=== PATIENT | male | born 1970 | race Caucasian/White ===

== ENCOUNTER 2020-12-28 05:16 | Emergency (ER) | payer BC, OTHER ==
[2020-12-28 05:32] VITALS: BP 130/73; PULSE 64
--- NOTE | 2020-12-28 06:08 | EDM.PDOC ---
ED HPI GENERAL MEDICAL PROBLEM - General Chief Complaint: Respiratory Problem Stated Complaint: COVID+ISSUES Time Seen by Provider: 12/28/20 05:27 Source of Information: Reports: Patient History Limitations: Reports: No Limitations - History of Present Illness INITIAL COMMENTS - FREE TEXT/NARRATIVE: Mr. Castillo is a pleasant 50-year-old gentleman who states that he developed a he adache this past , 12/18/2020, which became worse on Tuesday, now with a fever of 101.3 degrees, followed by back pain on 12/20/2020, followed by a nonproductive cough on 12/21/2020. He states that he tested positive for the SARS-CoV-2 virus on Tuesday, at a drive-through Covid testing site, and was notified of his positive results that same day. Since then, he developed vomiting after he coughs last night, and dyspnea this morning. No constipation, diarrhea, or urinary symptoms. The patient states that he has been taking Delsym cough syrup, DayQuil, and NyQuil, none of which have seemed to help his symptoms. Here in the ED this morning, the patient is found to be hemodynamically stable, afebrile, saturating 97 to 100% on room air. He coughs on occasion, but it a ppears to be relatively comfortable, in no acute distress. Prior to last , the patient denies having a recent fever, chills, sore throat, ear pain, nasal or sinus congestion, cough, dyspnea, chest pain, palpitations, nausea, vomiting, constipation, diarrhea, abdominal pain, urinary symptoms, recent weight gain or weight loss, recent bloody bowel movements or black bowel movements, recent joint aches, headaches, or rashes. The patient does not have a PCP. He did not receive a COVID vaccination, and states that he does not intend to. Right Thoracic Pain Score (Numeric/FACES): 5 - Related Data Allergies Allergy/AdvReac Type Severity Reaction Status Date / Time No Known Allergies Allergy Verified 12/28/20 05:33 Home Meds: Home Meds . [No Known Home Meds] 12/28/20 [History] Past Medical History Respiratory History: Reports: Pneumothorax (right, traumatic, 2012) - Infectious Disease History Infectious Disease History: Reports: Novel Coronavirus (dx'd 12/22/2020) - Past Surgical History HEENT Surgical History: Reports: Eye Surgery, Oral Surgery (dental extractions) Respiratory Surgical History: Reports: Other (See Below) ([facility] chest tube 2011) Social & Family History - Tobacco Use Tobacco Use Status *Q: Never Tobacco User - Alcohol Use Alcohol Use History: Yes Alcohol Use Frequency: Rarely - Recreational Drug Use Recreational Drug Use: No - Living Situation & Occupation Living situation: Reports: , with Spouse, with Family (2 kids) Occupation: Employed (district service manager) ED ROS GENERAL - Review of Systems Review Of Systems: Comprehensive ROS is negative, except as noted in HPI. ED EXAM, GENERAL - Physical Exam Exam: See Below Exam Limited By: No Limitations General Appearance: Alert, WD/WN, No Apparent Distress (coughs intermittently) Eye Exam: Bilateral Eye: EOMI, Normal Inspection Ears: Normal External Exam, Hearing Grossly Normal Nose: Normal Inspection Throat/Mouth: Normal Inspection, Normal Lips, Normal Voice, No Airway Compromise Head: Atraumatic, Normocephalic Neck: Normal Inspection, Full Range of Motion Respiratory/Chest: No Respiratory Distress, Lungs Clear, Normal Breath Sounds, No Accessory Muscle Use. No: Decreased Breath Sounds, Crackles, Rhonchi, Wheezing, Stridor, Prolonged Expiration Cardiovascular: Normal Peripheral Pulses, Regular Rate, Rhythm, No Edema, No Gallop, No JVD, No Murmur, No Rub Peripheral Pulses: 3+: Radial (L), Radial (R) GI/Abdominal: Normal Bowel Sounds, Soft, Non-Tender, No Organomegaly, No Di stention, No Abnormal Bruit, No Mass Back Exam: Normal Inspection, Full Range of Motion, NT Extremities: Normal Inspection, Normal Range of Motion, No Pedal Edema, Normal Capillary Refill Neurological: Alert, Oriented, Normal Cognition, No Motor/Sensory Deficits Psychiatric: Normal Affect Skin Exam: Warm, Dry, Intact, Normal Color, No Rash Course - Vital Signs Last Recorded V/S: Last Vital Signs Temp 37.1 C 12/28/20 05:30 Pulse 64 12/28/20 05:30 Resp 18 12/28/20 05:30 BP 130/73 12/28/20 05:30 Pulse Ox 97 12/28/20 05:30 - Re-Assessments/Exams Free Text/Narrative Re-Assessment/Exam: 12/28/20 06:02 Based on the patient's BMI, he is a candidate for an infusion of the monoclonal antibody Regen-Cov. We discussed that at length, including that it is an emergency use authorization medication, intended to decrease the likelihood of patients diagnosed with COVID-19 from developing severe symptoms or , and that it does not treat current symptoms. I explained that Regen-Cov is still under investigation, that it is not fully FDA approved, and that the potential benefits and risks of the medication are not fully known. The patient was notified that if he receives Regen-Cov, that it may decrease his immune response to a COVID vaccination, should he decide to get it after he recovers from his current illness. I explained that there is a possibility that he could have an allergic reaction either during or after the infusion, as well as brief pain, bleeding, bruising of the skin, soreness, swelling, and possible infection at the infusion site. Other side effects could occur. I discussed that there are other potential treatment options that are currently not FDA approved to treat COVID-19. The patient was notified that the infusion takes about 1 hour, after which he would be expected to remain in the ED for another hour to observe for possible side effects. He was offered the "patient and caregiver IVELISSEA Regen-Cov fact sheet" to read and review. All questions were answered. The patient elected to NOT receive the infusion. The patient will be provided with a pulse oximeter. I recommended that he take OTC ibuprofen as needed for discomfort, and stay adequately hydrated. This is oxygen saturation dropped to 90% persistently, he should return to the ED for reevaluation. The patient agreed. Departure - Departure Time of Disposition: 06:05 Disposition: Home, Self-Care 01 Condition: Good Clinical Impression: COVID-19 - Discharge Information *PRESCRIPTION DRUG MONITORING PROGRAM REVIEWED*: Not Applicable *COPY OF PRESCRIPTION DRUG MONITORING REPORT IN PATIENT AMADEO: Not Applicable Instructions: COVID-19, COVID-19: How to Protect Yourself and Others - CDC Referrals: PCP,None [Primary Care Provider] - Forms: ED Department Discharge Additional Instructions: You were seen in the emergency room for a headache, fever, back pain cough, shortness of breath, and vomiting after coughing, in the setting of being diagnosed with COVID-19 on 12/22/2020. Infusion with the monoclonal antibody Regen-Cov was offered, but declined. We recommend that you take [id number] ibuprofen, 3 tablets (600 mg) up to every 8 hours, with food, as needed for discomfort. We recommend that you NOT take both acetaminophen (Tylenol) and ibuprofen. Stay adequately hydrated. You have been provided with a pulse oximeter. If your oxygen saturation drops to 90%, consistently, please return to the ER for reevaluation. It is important that you strictly isolate until you test negative. Since you are currently at day 10 of symptoms, you may get retested at any time. Sepsis Event Note (ED) - Focused Exam Vital Signs: Vital Signs Temp Pulse Resp BP Pulse Ox 12/28/20 05:30 37.1 C 64 18 130/73 97
== END 2020-12-28 06:18 | disposition home or self-care (01) ==
LOC: JD.ED 05:16
DX: U07.1 COVID-19 (principal)
CPT/HCPCS: 99283

== ENCOUNTER 2023-02-04 18:27 | Emergency (ER) | payer OTHER ==
[2023-02-04] MEDS ORDERED: Sodium Chloride 0.9% 1,000 ML IV SCH (19:00)
[2023-02-04 19:25] LABS: BASOPHILS PERCENT AUTO 0.6 % (0.0-1.0); EOSINOPHILS ABSOLUTE AUTO 0.1 K/mm3 (0.0-0.4); EOSINOPHILS PERCENT AUTO 1.6 % (0.0-6.0); HEMATOCRIT 46.3 % (42.0-52.0); HEMOGLOBIN 16.5 gm/dl (14.0-18.0); IMMATURE GRAN ABSOLUTE AUTO 0.02 K/mm3 (0.00-0.05); IMMATURE GRAN PERCENT AUTO 0.3 % (0.0-0.4); LYMPHOCYTES ABSOLUTE AUTO 1.6 K/mm3 (1.0-4.8); LYMPHOCYTES PERCENT AUTO 23.1 % (24.0-44.0); MEAN CORPUSCULAR HEMOGLOBIN 35.6 pg (28.0-32.0); MEAN CORPUSCULAR HGB CONC 35.6 g/dl (32.0-36.0); MEAN CORPUSCULAR VOLUME 99.8 fl (83.0-99.0); MEAN PLATELET VOLUME 8.5 fl (9.4-12.4); MONOCYTES ABSOLUTE AUTO 0.7 K/mm3 (0.0-0.8); MONOCYTES PERCENT AUTO 10.1 % (0.0-8.0); NEUTROPHILS ABSOLUTE AUTO 4.4 K/mm3 (1.8-7.7); NEUTROPHILS PERCENT AUTO 64.3 % (41.0-71.0); PLATELET COUNT,PLT 199 K/mm3 (150-400); RED BLOOD CELL COUNT 4.64 M/mm3 (4.52-5.90); WHITE BLOOD CELL COUNT,WBC 6.76 K/mm3 (3.9-11.3)
[2023-02-04 19:28] LABS: APPEARANCE,URINE CLEAR (Clear); BILIRUBIN,URINE NEGATIVE (Negative); COLOR,URINE YELLOW (Yellow); GLUCOSE,URINE NEGATIVE (Negative); KETONES,URINE NEGATIVE (Negative); LEUKOCYTE ESTERASE,URINE NEGATIVE (Negative); NITRITE,URINE NEGATIVE (Negative); OCCULT BLOOD,URINE TRACE-LYSED (Negative); PROTEIN,URINE NEGATIVE (Negative); UROBILINOGEN,URINE 0.2 (0.2-1.0)
[2023-02-04 19:38] LABS: BACTERIA,URINE OCCASIONAL /hpf (FEW); MUCUS,URINE NOT SEEN /hpf (FEW); RBC,URINE 0-5 /hpf (0-5); SQUAMOUS EPITHELIAL CELLS,UR NOT SEEN /hpf (0-5); WBC,URINE 0-5 /hpf (0-5)
[2023-02-04 19:46] LABS: A/G RATIO 1.2 (1-2); ANION GAP 13.2 (5-15); BILIRUBIN TOTAL 1.3 mg/dL (0.2-1.0); BUN/CREATININE RATIO 13.3 (14-18); CREATININE 1.5 mg/dL (0.7-1.3); EST CRCL DRUG DOSING (CG) 62.75 mL/min; POTASSIUM,K 4.2 mEq/L (3.5-5.1); PROTEIN TOTAL,TP 7.3 g/dl (6.4-8.2)
[2023-02-04] MEDS ORDERED: Tamsulosin 0.4 MG Cap.ER PO ONE (19:54)
[2023-02-04] MEDS ORDERED: Ketorolac 15 MG/ML SDV IVPUSH ONE (20:37)
[2023-02-04 21:24] VITALS: BP 117/75; PULSE 62
== END 2023-02-04 21:15 | disposition home or self-care (01) ==
LOC: JD.ED 18:27
DX: N13.2 Hydronephrosis with renal and ureteral calculous obstruction (principal); Z86.16 Personal history of COVID-19
CPT/HCPCS: 36415; 74176; 80053; 81001; 83690; 85025; 96361; 96374; 99284; A9270; J1885; J7030